=== PATIENT | female | born 1970 | race Caucasian/White ===

== ENCOUNTER 2016-10-16 16:09 | Emergency (ER) | payer OTHER ==
[~2016-10-16] VITALS: Ht 154.9 cm; Wt 88.5 kg
--- NOTE | ~2016-10-16 | CT71 ---
[facility] A Service [facility] RADIOLOGY TEXT RESULTS PATIENT: THEODORA DIALLO LOCATION: SED : 74 UNIT #: [id number] AGE: [address]: Danielle Valdez SEX: F ORDER DR: [id number] [address] [address] [id number] MR#: [id number] #: [id number] NAME: THEODORA DIALLO. : 1970 SEX: F STUDY DATE/TIME: 10/16/2016 18:21 UNIT: SED ROOM: STUDY DESCRIPTION: CT Head Wo Contrast Attending Physician: Danielle Valdez Pa-C Ordering Physician: Danielle Valdez Pa-C MEDICAL IMAGING REPORT This report is preliminary unless electronic signature is present. EXAM Head CT without contrast 10/16/2016 HISTORY Headache, pain in back of head for 1 week. No known injury. TECHNIQUE This CT exam was performed with one or more of the following radiation dose reduction techniques: automatic control, adjustment of mA and/or kV according to patient size, and iterative reconstruction. FINDINGS Axial noncontrast images were obtained from the skull base to the vertex. Ventricular size and configuration are normal. There is no evidence of acute infarct or hemorrhage. There are no extraaxial fluid collections. No mass lesion or mass effect is seen. There are no skull fractures. IMPRESSION Normal noncontrast head CT. Dictated by... Alfred Avendano M.D. THIS IS AN ELECTRONICALLY VERIFIED REPORT Alfred Avendano M.D. at 10/19/2016 7:23 AM YARELI/maria luisa TD: 10/17/2016 05:00 JOB #: [id number] MEDICAL IMAGING REPORT [facility] A [facility] RADIOLOGY TEXT RESULTS PATIENT: THEODORA DIALLO LOCATION: SED : 74 UNIT #: [id number] AGE: [address]: Danielle Valdez SEX: F ORDER DR: Page 1 of 1
[2016-10-16] MEDS ORDERED: NITROFURANTOIN100 M3 (16:32)
[2016-10-16] MEDS ORDERED: WELLBUTRIN SR150 M1 (16:32)
== END 2016-10-16 19:21 | disposition home or self-care (01) ==
LOC: SED 16:09
DX: R51 Headache (principal)
CPT/HCPCS: 70450; 96374; 96375; 99284; J0780; J1200; J1885